=== PATIENT | female | born 1960 | race Caucasian/White ===

== ENCOUNTER → 2016-07-31 | Outpatient (CLI) | payer BC, OTHER ==
--- NOTE | 2016-07-31 10:34 | DI ---
Indication: ITS.REASON: M54.5 LBP intermittent leg numbness. PROCEDURE: MRI LUMBAR SPINE W/O CONTRAST: Encounter: Initial Comparison: Lumbar spine MRI dated February 25, 2013 Technique: Multiplanar multisequence MR imaging of the lumbar spine was performed without contrast. Findings: Alignment of the lumbar spine is abnormal but unchanged with scoliosis. Vertebral body heights are stable without acute compression fracture. Conus medullaris terminates normally at L1-L2. The paraspinal soft tissues are unremarkable. Segmental analysis: L1-L2: Right central disk bulge without central canal stenosis. Mild degenerative facet change and mild right neural foraminal stenosis. No significant left foraminal narrowing. This level is unchanged. L2-L3: Disk height loss with a small bulge contributing to mild central canal narrowing. Mild bilateral neural foraminal narrowing. This is worsened on the left. L3-L4: Disk height loss with a disk osteophyte complex and degenerative facet disease contributing to severe central canal stenosis. Severe right and moderate left neural foraminal stenosis. This is similar to the comparison. L4-L5: Degenerative facet hypertrophy with a disk protrusion and listhesis contributes to severe central canal stenosis and compression of the thecal sac. Severe bony bilateral neural foraminal stenosis with impingement on both exiting L4 nerve roots, similar to the comparison. L5-S1: Degenerative facet disease with a right lateral and foraminal disk bulge and mild central canal stenosis. Severe bilateral neural foraminal stenosis, slightly worsened from the comparison. Impression: Interval progression of degenerative changes at a few different levels as described above. .
== END ==
LOC: IMA.MDS 09:09
PROVIDERS: ATTEND Family Medicine
DX: M48.06 Spinal stenosis, lumbar region (principal); M47.26 Other spondylosis with radiculopathy, lumbar region; M47.27 Other spondylosis with radiculopathy, lumbosacral region; M51.16 Intervertebral disc disorders with radiculopathy, lumbar region; M54.5 Low back pain

== ENCOUNTER → 2016-08-16 | Outpatient (CLI) | payer BC ==
[~2016-08-16] MED LIST: IOHEXOL 180 MG/ML 20ml INJECTION ONE; LIDOCAINE 1% (10mg/ml) 5ml VIAL ONE; MethylPREDNISolone ACETATE 40mg/1ml ONE
--- NOTE | 2016-08-16 11:39 | DI ---
Indication:ITS.REASON: M54.16 RADICULOPATHY Procedure:EPIDURAL INJ.SPINE W FLUO CATH LUMBAR EPIDURAL INJECTION: The patient has low back and radicular pain. The patient has not had any previous epidurals. The details of the procedure, including the benefits, risks, and alternatives were explained to the patient. All of their questions were answered. They stated that they understood and wished to proceed. Informed consent was then obtained. A pre-procedural timeout was performed to confirm the correct patient and procedure. Utilizing aseptic technique, local lidocaine anesthetic, and fluoroscopic guidance throughout, a 22-gauge spinal needle was directed into the lumbar epidural space via an interlaminar approach at the L5-S1 level. Contrast was injected to assure proper positioning of the needle tip. A fluoroscopic image was then taken and archived. Subsequently, 120 mg Depo-Medrol was injected into the epidural space. The patient tolerated the procedure well. IMPRESSION: Successful lumbar epidural steroid injection. Fluoroscopy dose: 22.88 mGy (Cumulative air kerma) Christopher Mar RPA/MICAH performed this under my personal supervision. .
== END ==
LOC: IMA 08:20
PROVIDERS: ATTEND Family Medicine
DX: M54.16 Radiculopathy, lumbar region (principal); M54.5 Low back pain
CPT/HCPCS: 62323; J1030; Q9965